=== PATIENT | female | born 1950 | race Caucasian/White ===

== ENCOUNTER 2024-06-05 15:38 | Emergency (ER) | payer MEDICARE ==
[~2024-06-05] VITALS: Ht 160 cm; Wt 70.4 kg
[2024-06-05 15:52] VITALS: BP 165/58; PULSE 67; RESP 14; TEMP 97.2; O2SAT 97
[2024-06-05] MEDS ORDERED: CEPH-585 PO (17:13)
== END 2024-06-05 17:29 | disposition home or self-care (01) ==
LOC: ER 15:39
DX: L60.0 Ingrowing nail (principal)
CPT/HCPCS: 11750; 99285; A6222; 11740; 99284